=== PATIENT | male | born 1975 | race Caucasian/White ===

== ENCOUNTER 2018-07-15 22:09 | Inpatient (IN) | payer OTHER ==
[~2018-07-15] VITALS: Ht 188 cm; Wt 105.7 kg
--- NOTE | ~2018-07-15 | CON ---
[address] [address] CONSULTATION Name: MICHAEL BOWMAN Room: [address] IN M.R.#: [id number] Admission: 07/16/18 Attend Phys: Sandra Danielson Discharge: Date of : 79 Report #: [id number] THIS REPORT FOR: //name// CC: Bruce Roberto DATE OF SERVICE: 07/16/2018 TYPE OF REPORT: Cardiology consultation. HISTORY OF PRESENT ILLNESS: The patient is a 43-year-old white male who I was asked to see in the hospital today after he was noted to be in atrial fibrillation. The history obtained from the patient. No old records available. The patient has no history of heart disease. He does note about 10 days ago, he was in [place] for several days and received a sunburn. However, he was doing well until last night he went to a bar to play darts. He drinks about a 6-pack of beer and was vaping. He also became short of breath, felt his heart beating irregular, felt lightheaded. He had to lie down. EMS was called and he was brought here to [place]. He was found to be in atrial fibrillation. Cardiology consultation was requested. He denies a history of chest pain, cough, edema or syncope. PAST MEDICAL HISTORY: He has had arthroscopy on both knees. No history of hypertension, diabetes or hyperlipidemia. MEDICATIONS: He is on no medications. FAMILY HISTORY: His mother had atrial fibrillation. SOCIAL HISTORY: He is . He and his live in [facility]. 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 He smokes less than half pack of cigarettes a day and does have several beers every day. Denies illicit drug use. REVIEW OF SYSTEMS: He has had no history of stroke, asthma, peptic ulcer disease, liver disease, kidney disease, cancer, psychiatric illness or chronic skin condition. PHYSICAL EXAMINATION: GENERAL: Revealed a middle-aged male lying in bed, he appeared in no distress. VITAL SIGNS: He had a blood pressure of 120/70, pulse was 90 and irregular, respirations nonlabored and he is afebrile. HEENT: He is anicteric. Conjunctivae pink. Mucous membranes moist. NECK: Veins nondistended. NECK: Supple. CHEST: [place] [address] CONSULTATION Name: MICHAEL BOWMAN Room: [address]#: [id number] Admission: 07/16/18 Attend Phys: Sandra Danielson Discharge: Date of : 79 Report #: [id number] CARDIOVASCULAR: Irregular rhythm. No significant murmur. ABDOMEN: Soft. EXTREMITIES: Had no edema. Dorsalis pedis pulse 2+ bilaterally. SKIN: Warm and dry. NEUROLOGICAL: Nonfocal. LYMPHATIC: No adenopathy. MUSCULOSKELETAL: No joint effusion. CARDIOLOGICAL DATA: His ECG on admission last night showed atrial fibrillation with an increased ventricular response rate, nonspecific ST and T-wave changes. LABORATORY DATA: His workup last night: Sodium 143, potassium 3.2 and creatinine 1.1. Liver function studies were normal. Troponin 0.06. Alcohol level was 79. His urine drug screen was positive for marijuana. White blood cell count 9.1 and hemoglobin 13.2. RADIOLOGICAL DATA: He had a CT scan of the head performed without contrast that showed no significant abnormalities. His chest x-ray last night showed some atelectasis, otherwise unremarkable. IMPRESSION AND RECOMMENDATIONS: 1. Atrial fibrillation. Suspect acute onset. The patient has a FRANSISCO score of 0. The rate is fairly well controlled. At this time, I will consider starting antiarrhythmic therapy and consider cardioversion and he fails to convert. 2. Tobacco abuse. 3. Excessive alcohol intake. By: [id number] Prado MD, FACC /nt
[2018-07-15 22:12] VITALS: BP 140/70
[2018-07-15 22:47] LABS: ABSOLUTE BASOPHILS 0.1 thou/uL (0.0-0.2); ABSOLUTE EOSINOPHILS 0.4 thou/uL (0.0-0.7); ABSOLUTE LYMPHOCYTES 3.8 thou/uL (0.8-5.3); ABSOLUTE MONOCYTES 0.7 thou/uL (0.0-1.2); BASOPHILS 1.1 %; EOSINOPHILS 4.6 %; HEMATOCRIT 38.9 % (42.0-52.0); HEMOGLOBIN 13.2 gm/dL (14.0-18.0); LYMPHOCYTES 42.4 %; MCH 31.1 pg (26.0-34.0); MCHC 33.9 g/dL (28.0-37.0); MCV 91.6 fL (80.0-100.0); MPV 8.4 fl. (7.2-11.1); NUCLEATED RBCS 0 /100WBC; PLATELET COUNT* 221 thou/uL (150-400); POLYS 43.9 %; RBC 4.25 mil/uL (4.50-6.00); WBC 9.1 thou/uL (4.0-11.0)
[2018-07-15 23:02] LABS: ALBUMIN 3.8 g/dL (3.4-5.0); ALKALINE PHOSPHATASE 64 U/L (46-116); ANION GAP 13 mmol/L (7-16); BUN 14 mg/dL (7-18); CALCIUM 8.8 mg/dL (8.5-10.1); CHLORIDE 104 mmol/L (98-107); CO2 26 mmol/L (21-32); CREATININE 1.1 mg/dL (0.6-1.3); GLUCOSE 156 mg/dL (70-99); POTASSIUM 3.2 mmol/L (3.5-5.1); SGOT 16 U/L (15-37); SGPT 32 U/L (30-65); SODIUM 143 mmol/L (136-145); TOTAL BILIRUBIN 0.3 mg/dL (<0.1-1.0); TOTAL PROTEIN 7.2 g/dL (6.4-8.2); TROPONIN-I LEVEL <0.06 ng/mL (<0.06)
[2018-07-15 23:46] LABS: AMP/METHAMP Negative (Negative); BARBITURATES Negative (Negative); BENZODIAZEPINES Negative (Negative); COCAINE Negative (Negative); METHADONE Negative (Negative); OPIATES Negative (Negative); PCP Negative (Negative); THC POSITIVE (Negative)
[2018-07-16] VITALS (7 sets, daily range): BP systolic 101–142; BP diastolic 54–91
--- NOTE | 2018-07-16 00:12 | NUR ---
UDS OBTAINED VIA STRAIGHT CATH. PT'S HEART RATE 90-110 AFTER RECIEVING 20MG CARDIZEM IV PUSH. BLOOD PRESSURE WITHIN NORMAL LIMITS. APPLIED OXYGEN AT 2 LITERS FOR O2 SAT 88-90% ON ROOM AIR. REPORT GIVEN TO ERWIN MCCONNELL
--- NOTE | 2018-07-16 03:10 | NUR ---
PT ARRIVED TO 2 E RM 231. VIA CART. PT LETHARGIC ORIENTED. ANSWERS QUESTIONS APPROPRIATELY. PT MADE HIGH FALL RISK. TELEMETRY SHOWS AFIB 90S. SCDS PLACED ON PT. DENIES PAIN. IVF NS AT 100MLS/HR STARTED. PTS RICK PICKED UP IN ED PER PTS FRIEND NYLA. PTS CELL PHONE W/ PTS FRIEND TIM. REDMOND STATES HE WILL LEAVE PHONE. NPO.
--- NOTE | 2018-07-16 07:25 | NUR ---
CHANGE OF SHIFT, BEDSIDE REPORT GIVEN PATIENT SEEN IN BED, RESTING ASSUMED PATIENT CARE
--- NOTE | 2018-07-16 10:10 | EKG ---
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
--- NOTE | 2018-07-16 10:10 | EKG ---
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 : 1975 Requested By: Alejandra Stockton Order Number: [id number] Guicho MD: Sulaiman Prado Measurements Intervals [place] Rate: 89 P: OR: QRS: 153 QRSD: 99 T: 140 QT: 372 QTc: 453 Interpretive Statements Right and left arm electrode reversal, interpretation assumes no reversal Atrial fibrillation Probable lateral infarct, age indeterminate Electronically Signed On 07-16-2018 10:10:41 SUPERVISOR FUR FLOOR WORKER by Sulaiman Prado [email or web address] <ELECTRONICALLY SIGNED> By: Sulaiman Prado MD, [facility] 07/16/18 1010 D: 02/2247 47 Sulaiman Prado MD, FACC /EPI
--- NOTE | 2018-07-16 16:01 | NUR ---
cm completed initial assesssment.pt is a&ox4. pt lives at home w/. active and independent. pt has 0 DMEs. no hx w/SNF or HH. CM to provide resource list r/t ETOH abuse. pt denies any needs at this time. cm to remain available to assist w/any needs.
--- NOTE | 2018-07-16 16:02 | 2DMMODE ---
[place] [address] 2 D/M-MODE ECHOCARDIOGRAM Name: MICHAEL BOWMAN Room: [address] IN [facility]#: [id number] Admission: 07/16/18 Attend Phys: Shahriar Parham Discharge: Date of : 79 Date of Service: 07/16/18 1601 Report #: [id number] THIS REPORT FOR: //name// APPROVED REPORT Study performed: 07/16/2018 14:52:35 EXAM: Comprehensive 2D, Doppler, and color-flow Echocardiogram Patient Location: In-Patient Room #: 231 Status: routine BSA: 2.30 HR: 100 bpm BP: 131/91 mmHg Rhythm: Atrial Fibrillation Other Information Study Quality: Good Indications Atrial Fibrillation 2D Dimensions IVSd: 13.83 (7-11mm) LVOT Diam: 22.26 (18-24mm) LVDd: 45.86 mm PWd: 13.49 (7-11mm) Ascending Ao: 34.01 (22-36mm) LVDs: 25.50 (25-40mm) Aortic Root: 35.20 mm Volumes Left Atrial Volume (Systole) LA ESV Index: 24.80 mL/m2 Aortic Valve AoV Peak Jaime.: 1.18 m/s AO Peak Gr.: 5.55 mmHg LVOT Max P.14 mmHg AO Mean Gr.: 3.16 mmHg LVOT Mean P.11 mmHg LVOT Max V: 1.02 m/s AO V2 VTI: 22.34 cm LVOT Mean V: 0.67 m/s VICTORINO (VTI): 3.52 cm2 LVOT V1 VTI: 20.23 cm TDI Medial E' Jaime.: 0.16 m/s Lateral E' Jaime.: 0.22 m/[place] [address] 2 D/M-MODE ECHOCARDIOGRAM Name: MICHAEL BOWMAN Room: [address] IN ..#: [id number] Admission: 07/16/18 Attend Phys: Shahriar Parham Discharge: Date of : 79 Date of Service: 07/16/18 1601 Report #: [id number] Pulmonary Valve PV Peak Jaime.: 1.12 m/s PV Peak Gr.: 5.03 mmHg Left Ventricle The left ventricle is normal size. There is normal LV segmental wall motion. Mild concentric left ventricular hypertrophy. Left ventricular systolic function is normal. The left ventricular ejection fraction is within the normal range. LVEF is 60-65%. This study is not technically sufficient to allow evaluation of the LV diastolic function due to atrial fibrillation. Right Ventricle The right ventricle is normal size. The right ventricular systolic function is normal. Atria The left atrium size is normal. The right atrium size is normal. Aortic Valve The aortic valve is normal in structure. No aortic regurgitation is present. There is no aortic valvular stenosis. Mitral Valve The mitral valve is normal in structure. There is no mitral valve regurgitation noted. No evidence of mitral valve stenosis. Tricuspid Valve The tricuspid valve is normal in structure. Unable to assess PA pressure. Trace tricuspid regurgitation. Pulmonic Valve The pulmonary valve is normal in structure. There is no pulmonic valvular regurgitation. Great Vessels The aortic root is normal in size. IVC is normal in size and collapses >50% with inspiration. Pericardium There is no pericardial effusion. <Conclusion> [place] [address] 2 D/M-MODE ECHOCARDIOGRAM Name: MICHAEL BOWMAN Elieser Room: [address] IN M.R.#: [id number] Admission: 07/16/18 Attend Phys: Shahriar Parham Discharge: Date of : 79 Date of Service: 07/16/181600 Report #: [id number] LVEF is 60-65%. Mild concentric left ventricular hypertrophy. <ELECTRONICALLY SIGNED> By: Sulaiman Prado MD, [facility] 07/16/181600 00 1601 Sulaiman Prado MD, FACC /INF
[2018-07-17 00:48] VITALS: BP 113/68
--- NOTE | 2018-07-17 05:00 | NUR ---
ASSUMED CARE OF PT AFTER REPORT AT 1930. PT A&OX4. VSS. PHSYICAL ASSESSMENT COMPLETED AND CHARTED. PT ON RA WITH 92% O2 SAT. PT TRACING SR./1ST DEG AV BLOCK ON TELE. PT UPADLIB TO RESTROOM. PT DENIES ANY PAIN OR DISCOMFORT. PT RESTED WELL ON BED. CALL LIGHT WITHIN REACH.
[2018-07-17 05:01] VITALS: BP 119/79
[2018-07-17 06:32] LABS: ABSOLUTE BASOPHILS 0.1 thou/uL (0.0-0.2); ABSOLUTE EOSINOPHILS 0.3 thou/uL (0.0-0.7); ABSOLUTE LYMPHOCYTES 1.8 thou/uL (0.8-5.3); ABSOLUTE MONOCYTES 0.5 thou/uL (0.0-1.2); ABSOLUTE NEUTROPHILS 3.3 thou/uL (1.6-8.1); BASOPHILS 0.9 %; EOSINOPHILS 4.6 %; HEMATOCRIT 38.5 % (42.0-52.0); HEMOGLOBIN 13.2 gm/dL (14.0-18.0); LYMPHOCYTES 30.7 %; MCH 31.7 pg (26.0-34.0); MCHC 34.4 g/dL (28.0-37.0); MCV 92.2 fL (80.0-100.0); MONOCYTES 7.9 %; MPV 8.7 fl. (7.2-11.1); NUCLEATED RBCS 0 /100WBC; PLATELET COUNT* 176 thou/uL (150-400); POLYS 55.9 %; RBC 4.17 mil/uL (4.50-6.00); RDW-CV 13.5 % (10.5-14.5)
[2018-07-17 06:55] LABS: CALCIUM 8.7 mg/dL (8.5-10.1); CREATININE 0.9 mg/dL (0.6-1.3); POTASSIUM 4.4 mmol/L (3.5-5.1)
[2018-07-17 08:00] VITALS: BP 137/94
[2018-07-17 10:18] VITALS: BP 137/94
[2018-07-17 11:51] VITALS: BP 132/93
--- NOTE | 2018-07-17 12:02 | EKG ---
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: : 1975 Requested By: Sulaiman Prado Order Number: [id number] Reading MD: Dwayne Hunt Measurements Intervals [place] Rate: 59 P: 54 OR: 231 QRS: 27 QRSD: 96 T: 44 QT: 401 QTc: 398 Interpretive Statements Sinus rhythm Prolonged OR interval Compared to ECG 07/15/2018 22:48:01 First degree AV block now present Atrial fibrillation no longer present Myocardial infarct finding no longer present Electronically Signed On 07-17-2018 12:02:14 SEMICONDUCTOR DEVELOPMENT TECHNICIAN by Dwayne Hunt [email or web address] <ELECTRONICALLY SIGNED> By: Dwayne Hunt MD, [facility] 07/17/18 1202 0815 0815 Dwayne Hunt MD, [facility] /EPI
[2018-07-17] MEDS ORDERED: DIGOXIN125 MCG PO (12:18)
[2018-07-17 12:19] VITALS: BP 137/94
--- NOTE | 2018-07-17 13:15 | NUR ---
PT DISCHARGED HOME. COPY OF DISCHARGE PAPERWORK TO PT WITH EXPLAINATION. PT VERBALIZED UNDERSTANDING. DIGOXIN PRESCRIPTION GIVEN TO PT. IV ACCESS AND CEO AND PRESIDENT REMOVED. PT TAKEN PER WHEELCHAIR TO FRONT ENTRANCE TO HIS TRANSPORTATION.
== END 2018-07-17 12:35 | disposition home or self-care (01) | DRG 308 ==
LOC: M.ERS 22:09 → M.2W 07-16 00:46 → M.TBA-ER 07-16 00:46 → M.2W 07-16 01:19
PROVIDERS: Internal Medicine; Personal Emergency Response Attendant; ADMIT Internal Medicine
DX: I48.91 Unspecified atrial fibrillation (principal); G92 Toxic encephalopathy; G24.9 Dystonia, unspecified; F17.210 Nicotine dependence, cigarettes, uncomplicated; E86.0 Dehydration; F10.20 Alcohol dependence, uncomplicated; Z82.49 Family history of ischemic heart disease and other diseases of the circulatory system